=== PATIENT | male | born 1960 | race Caucasian/White ===

== ENCOUNTER 2022-10-14 15:56 | Emergency (ER) | payer SELFPAY ==
[~2022-10-14] VITALS: Ht 185.4 cm; Wt 86.4 kg
[2022-10-14 16:14] VITALS: BP 140/92
== END 2022-10-14 16:41 ==
LOC: ER 15:57
DX: S50.312A Abrasion of left elbow, initial encounter (principal); S50.311A Abrasion of right elbow, initial encounter; V69.9XXA Occupant (driver) (passenger) of heavy transport vehicle injured in unspecified traffic accident, initial encounter; Y93.89 Activity, other specified; Y92.89 Other specified places as the place of occurrence of the external cause; Y99.8 Other external cause status
CPT/HCPCS: 99283